=== PATIENT | female | born 1990 | race African-American/Black ===

== ENCOUNTER 2019-02-04 09:20 | Emergency (ER) | payer MEDICAID ==
[~2019-02-04 09:20] MED LIST: DOXYCYCLINE; METRONIDAZOLE
== END 2019-02-04 10:31 | disposition left against medical advice (07) ==
LOC: ER 09:20
DX: R10.9 Unspecified abdominal pain (principal); Z53.21 Procedure and treatment not carried out due to patient leaving prior to being seen by health care provider

== ENCOUNTER 2019-04-28 05:34 | Emergency (ER) | payer MEDICAID ==
[~2019-04-28] VITALS: Ht 175.3 cm; Wt 50.0 kg
[2019-04-28] MEDS ORDERED: KETOROLAC 30MG/ML VIAL IV ONE (06:30)
[2019-04-28 07:15] LABS: CLARITY URINE TURBID (CLEAR); COLOR URINE RED (YELLOW); KETONES URINE NEGATIVE (NEGATIVE); LEUKOCYTE ESTERASE URINE 1+ (NEGATIVE); NITRITE URINE NEGATIVE (NEGATIVE); OCCULT BLOOD URINE 3+ (NEGATIVE); PROTEIN URINE 1+ (NEGATIVE); SPECIFIC GRAVITY URINE 1.019 (1.005-1.030); UROBILINOGEN URINE 0.2 E.U./dL (0.2-1.0)
[2019-04-28 07:57] LABS: BASOPHILS % 0.4 % (0.0-2.0); EOSINOPHILS % 0.3 % (0.0-5.0); HEMATOCRIT. 37.8 % (36.0-48.0); HEMOGLOBIN. 12.6 g/dL (12.0-16.0); LYMPHOCYTES % 9.6 % (20.0-50.0); MEAN CORPUSCULAR HEMOGLOBIN 28.2 pg (28.0-32.0); MEAN CORPUSCULAR VOLUME 84.4 fL (81.0-99.0); MONOCYTES % 5.6 % (2.0-8.0); NEUTROPHILS % 84.1 % (40.0-76.0); PLATELET 188 x1000/uL (130-400); RED BLOOD CELL COUNT 4.47 mill/uL (4.2-5.4)
[2019-04-28 08:04] LABS: CHLORIDE 110 mEq/L (98-107)
[2019-04-28 09:50] VITALS: BP 120/80
== END 2019-04-28 10:04 | disposition home or self-care (01) ==
LOC: ER 05:34
DX: N94.6 Dysmenorrhea, unspecified (principal)
CPT/HCPCS: 36415; 76830; 76856; 80048; 81003; 81025; 85025; 86850; 86900; 86901; 96374; 99284; J1885; Z7610

== ENCOUNTER 2019-10-11 12:23 | Emergency (ER) | payer MEDICAID ==
[~2019-10-11] VITALS: Ht 170.2 cm; Wt 58.0 kg
[2019-10-11] MEDS ORDERED: MORPHINE SULFATE 4 MG/ML CPJ (NOT FOR IM USE) IV ONE (15:00)
[2019-10-11] MEDS ORDERED: ONDANSETRON HCL 4MG/2ML INJ IV ONE (15:00)
[2019-10-11] MEDS ORDERED: HYDROCODONE/ACETAMINOPHEN 10/325MG TABLET PO ONE (15:15)
[2019-10-11] MEDS ORDERED: ONDANSETRON 4MG ODT PO ONE (15:15)
[2019-10-11 15:27] VITALS: BP 106/64
== END 2019-10-11 16:25 | disposition left against medical advice (07) ==
LOC: ER 12:23
DX: R10.2 Pelvic and perineal pain (principal); N94.6 Dysmenorrhea, unspecified
CPT/HCPCS: 99283; Q0162

== ENCOUNTER 2023-10-30 11:18 | Emergency (ER) | payer MEDICAID | END 2023-10-30 12:00 | disposition left against medical advice (07) | LOC: ER 11:18 | DX: R10.9 Unspecified abdominal pain (principal); R19.7 Diarrhea, unspecified; Z53.21 Procedure and treatment not carried out due to patient leaving prior to being seen by health care provider | CPT/HCPCS: 99281 ==